=== PATIENT | female | born 1965 | race Caucasian/White ===

== ENCOUNTER 2016-11-10 13:28 | Outpatient (CLI) | payer OTHER | END 2016-11-10 13:29 | DX: Z72.51 High risk heterosexual behavior (principal); L65.9 Nonscarring hair loss, unspecified; Z13.6 Encounter for screening for cardiovascular disorders; M25.40 Effusion, unspecified joint ==

== ENCOUNTER 2016-11-12 09:53 | Outpatient (CLI) | payer OTHER | END 2016-11-12 09:54 | disposition home or self-care (01) | DX: N63 Unspecified lump in breast (principal) ==

== ENCOUNTER 2016-11-24 08:55 | Outpatient (CLI) | payer MEDICAID, OTHER ==
[2016-11-24] MEDS ORDERED: BUFFERED LIDOCAINE 10 ML SYRINGE IU ONE (14:36)
[2016-11-24] MEDS ORDERED: BUPIVACAINE 0.5%-EPI 1:200000 PF 30 ML VIAL SUBQ ONE (14:36)
== END 2016-11-24 08:56 | disposition home or self-care (01) ==
DX: N60.21 Fibroadenosis of right breast (principal); N60.11 Diffuse cystic mastopathy of right breast